=== PATIENT | female | born 1965 | race Hispanic/Latino ===

== ENCOUNTER 2018-11-03 07:09 | Outpatient (CLI) | payer OTHER | END 2018-11-03 07:10 | disposition home or self-care (01) | LOC: C.LAB 07:09 | DX: K59.1 Functional diarrhea (principal); N95.1 Menopausal and female climacteric states; G47.09 Other insomnia ==

== ENCOUNTER 2019-01-18 11:00 | Outpatient (CLI) | payer OTHER | END 2019-01-18 11:01 | disposition home or self-care (01) | LOC: C.RADH 11:00 | DX: Z57.39 Occupational exposure to other air contaminants (principal) ==

== ENCOUNTER 2019-02-08 09:27 | Outpatient (CLI) | payer OTHER | END 2019-02-08 09:28 | disposition home or self-care (01) | LOC: C.LAB 09:27 | DX: J30.1 Allergic rhinitis due to pollen (principal) ==

== ENCOUNTER 2019-03-04 07:28 | Outpatient (CLI) | payer OTHER | END 2019-03-04 07:29 | disposition home or self-care (01) | LOC: C.MRIC 07:28 ==